=== PATIENT | female | born 1940 | race Two or more races ===

== ENCOUNTER 2025-06-07 01:45 | Emergency (ER) | payer MEDICARE, OTHER ==
[2025-06-07 01:58] VITALS: PULSE 94
--- NOTE | 2025-06-07 01:58 | ED.PDOC ---
History of Present Illness HPI Comments 85 y/o F, with a history of Alzheimer's dementia, ASA use, DM, and gout, is BIBA from home for c/c AMS. Per EMS report, daughter called after patient was found more altered than her usual baseline. Patient is stated to have just taken her first antibiotic dose for a UTI she was diagnosed with, recently. Vitals were noted to have been stable and within normal limits. Denial of weakness, facial droop, speech or vision deficits, or further associated symptoms. Time Seen by MD: 01:50 Reviewed Notes: Nurses Notes, Outreach Librarian Notes, Medications, Allergies Information Source: Patient, Emergency Med Personnel Mode of Arrival: EMS Severity: Moderate Timing: Hours Duration: Since onset Prehospital treatment: 12 Lead EKG, Accucheck (157), It Service Delivery Manager Past Medical History PAST MEDICAL HISTORY: Dementia, DM, Gout Past Medical History (Other): ASA use Surgical History: Denies all surgeries LEGAL AID History: Denies all LEGAL AID Hx Family History Family History: Unknown Social History Smoker: Non-Smoker Alcohol: Denies ETOH Use Drugs: Denies Drug Use Lives In: Home All Other Systems: Reviewed and Negative (Comprehensive systems review obtained and negative except for what is stated in the HPI.) Physical Exam General Appearance: No Apparent Distress, Normal, Other (ill and elderly appeaering ) HEENT: Normal ENT Inspection, Pharynx Normal, TMs Normal Neck: Full Range of Motion, Non-Tender, Normal, Normal Inspection Respiratory: Chest Non-Tender, Lungs Clear, No Accessory Muscle Use, No Respiratory Distress, Normal Breath Sounds Cardiovascular: No Edema, No JVD, No Murmur, No Gallop, Normal Peripheral Pulses, Regular Rate/Rhythm Breast Exam: Deferred Gastrointestinal: No Organomegaly, Non Tender, No Pulsatile Mass, Normal Bowel Sounds, Soft Genitalia: Deferred Pelvic: Deferred Rectal: Deferred Extremities: No calf tenderness, Normal capillary refill, Normal inspection, Normal range of motion, Non-tender, No pedal edema Musculoskeletal : Apperance: Normal Neurologic: Alert, mall manager II-XII nml as Tested, No Motor Deficits, Normal Affect, Normal Mood, No Sensory Deficits Cerebellar Function: Normal Reflexes: Normal Skin: Dry, Normal Color, Warm Lymphatic: No Adenopathy Was a procedure done? Was a procedure done?: No EKG EKG : Pulse Rate (adult): 94 [place]: Normal Cardiac Rhythm: NSR Block: None Hypertrophy: None ST: Normal Differential Dx Considerations may include: UTI, encephalopathy, sepsis, failure to thrive, dehydration, electrolyte im balance, among others X-Ray, Labs, Meds, VS Vital Signs Date Time Temp Pulse Resp B/P (MAP) Pulse Ox O2 Delivery O2 Flow Rate FiO2 06/07/25 01:58 94 Time of 1ST Reevaluation: 02:20 Reevaluation 1ST: Unchanged Patient Education/Counseling: Diagnosis, Treatment Family Education/Counseling: No Family Present SEPSIS Sepsis Screen Physician Orders Accucheck (06/07/25 01:57) Cefepime 1gm/50ml (Maxipime 1gm/50ml) (06/07/25 06:00) Sepsis Reassesment After Fluid (06/07/25 02:57) Pharmacy Clarification: (06/07/25 23:59) Vital Signs Date Time Temp Pulse Resp B/P (MAP) Pulse Ox O2 Delivery O2 Flow Rate FiO2 06/07/25 01:58 94 Departure 1 Departure Time of Disposition: 06:33 (Concern for sepsis. Patient will be admitted further workup.) Impression: Primary Impression: Sepsis Disposition: 09 ADMITTED INPATIENT Admit to: Med Surg Condition: Serious Critical Care Note Critical Care Time?: No Stability Stability form required: No Heart Score Heart Score: Heart Score Response (Comments) Value History N/A 0 EKG N/A 0 Age N/A 0 Risk Factors N/A 0 Troponin N/A 0 Total 0 I personally scribed for JOHNATHON LARSEN MD ([email or web address]) on 06/07/25 at 01:58. Electronically submitted by Matt Holcomb ([email or web address]). JOHNATHON LARSEN MD Jun 07, 2025 01:58
[2025-06-07] MEDS ORDERED: SODIUM CHLORIDE 0.9% 1,000 ML IV ONE (02:00)
[2025-06-07] MEDS ORDERED: CEFEPIME 1GM/50ML 50 ML IV SCH (06:00)
== END 2025-06-07 01:56 | disposition left against medical advice (07) ==
LOC: EDBD 01:45 → ER 01:45
DX: A41.9 Sepsis, unspecified organism (principal); E11.9 Type 2 diabetes mellitus without complications; F03.90 Unspecified dementia, unspecified severity, without behavioral disturbance, psychotic disturbance, mood disturbance, and anxiety; M10.9 Gout, unspecified; Z87.440 Personal history of urinary (tract) infections